=== PATIENT | female | born 1995 | race Caucasian/White ===

== ENCOUNTER 2025-02-09 01:17 | Inpatient (IN) | payer BC, SELFPAY ==
[2025-02-09] VITALS (247 sets, daily range): BP systolic 92–147; BP diastolic 48–108; PULSE 36–136; TEMP 36.6–37.7; O2SAT 90–100; BMI 29.9
--- OUTSIDE RECORDS SUMMARY | 2025-02-09 01:43 | XMS_ITS | Encounter Summary ---
Author Organization [facility] Address [address] [place] [id number] Care Team Providers Care Contact Officer Name Role Phone Francine Wood MD Primary Care Provider + Encounter Details Date Type Department Care Team (Late st Contact Info) Description 09/08/2020 Prep for Procedure [facility] [place] [address] Shonna Randall, DPTe [address] [facility] [address] [address] Social History Tobacco Use Types Packs/Day Years Used Date Smoking Tobacco: Never Smokeless Tobacco: Never Alcohol Use Standard Drinks/Week Comments Yes 3.3 (1 standard drink = 0.6 oz p ure alcohol) maybe two on weekend Comments No Sex and Gender Information Value Date Recorded Sex Assigned at Not on file Legal Sex Female 11:53 AM [employer]OE [employer] Gender Identity Not on file Sexual Orientation Not on file COVID-19 Exposure Response Date Recorded In the last month, have you been in contact with someone who was confirmed or suspected to have Coronavirus / COVID-19? No / Unsure 09/08/2020 5:25 AM CDT documented as of this encounter Plan of Treatment Upcoming Encounters Date Type Department Care Team (Late st Contact Info) Description 02/05/2026 7:30 AM CDT Office Visit [facility] - [place] [address] [place] [address] Francine Wood MD [address] [place] [address] documented as of this encounter Results * PRE-SURGICAL/PRE-PROCEDURE CORONAVIRUS (COVID 19) (09/05/2020 10:41 AM CDT) CORONAVIRUS SARS COV 2 PCR (RESP) NOT DETECTED NOT DETECTED 09/06/2020 10:35 AM CDT [employer] [facility] Comment: A Not Detected (negative) test result for this test means that SARS- CoV-2 RNA was not present in the specimen above the limit of detection. A negative result does not rule out the possibility of COVID-19 and should not be used as the sole basis for treatment or patient management decisions. If COVID-19 is still suspected, based on exposure history together with other clinical findings, re-testing should be considered in consultation with public health authorities. Laboratory test results should always be considered in the context of clinical observations and epidemiological data in making a final diagnosis and patient management decisions. Please review the Fact Sheets and FDA authorized labeling available for health care providers and patients using the following websites: https://www.[employer].com/home/Covid-19/HCP/Quest[employer]/fact- sheet.html https://www.[employer].Soluto/home/Covid-19/Patients/ QuestIVD/fact-sheet.html This test has been authorized by the FDA under an Emergency Use Authorization (EUA) for use by authorized laboratories. Due to the current public health emergency, [employer] is receiving a high volume of samples from a wide variety of swabs and media for COVID-19 testing. In order to serve patients during this public health crisis, samples from appropriate clinical sources are being tested. Negative test results derived from specimens received in non-commercially manufactured viral collection and transport media, or in media and sample collection kits not yet authorized by FDA for COVID-19 testing should be cautiously evaluated and the patient potentially subjected to extra precautions such as additional clinical monitoring, including collection of an additional specimen. Methodology: Nucleic Acid Amplification Test (NAAT) includes RT-PCR or TMA Additional information about COVID-19 can be found at the [employer] website: www.[employer].com/Covid19. Test performed at [employer] [employer] [facility] [address] [id number] Director: ZOYA FERNANDEZ DO,MPH FIRST TEST NO 09/05/2020 3:02 PM CDT [facility] EMPLOYED IN HEALTHCARE UNKNOWN 09/05/2020 3:02 PM CDT [facility] SYMPTOMATIC DEFINED BY CDC NO 09/05/2020 3:02 PM CDT [facility] DATE OF SYMPTOM ONSET UNKNOWN 09/05/2020 4:04 PM CDT [facility] HOSPITALIZATION STATUS NO 09/05/2020 3:02 PM CDT [facility] PATIENT IN ICU NO 09/05/2020 3:02 PM CDT [facility] RESIDENT OF [facility] UNKNOWN 09/05/2020 3:02 PM CDT [facility] NOT 09/05/2020 3:02 PM CDT [facility] PATIENT'S RACE WHITE OR 09/05/2020 3:02 PM CDT [facility] ETHNICITY NONHISPANIC 09/05/2020 3:02 PM CDT [facility] SOURCE (QST) NASOPHARYNGEAL SWAB 09/05/2020 3:02 PM CDT [facility] NASOPHARYNGEAL SWAB / Unknown 09/05/2020 10:41 AM CDT Shonna Burroughs DPM MICROBIOLOGY - GENERAL O RDERABLES Final Result [facility] [address] [place] [address], [facility] [employer] [facility] [address] [place] [address], documented in this encounter Visit Diagnoses Diagnosis Preoperative testing- Primary Preoperative examination, unspecified documented in this encounter Care Teams Contact Officer Relationship Specialty Start Date End Date Francine Wood MD [address] [place] [id number] PCP - General FAMILY PRACTICE 01/30/25 documented as of this encounter
--- NOTE | 2025-02-09 02:04 | LDADM ---
This patient, Jolanta Tolbert, was admitted to Labor/Delivery/Recovery 108 on 02/09/25 at 01:17. Plans for labor, pain management and were discussed with patient. Patient/family oriented to hospital policies and general routines including ID bracelet, bed and alarms, visiting hours, pain management, procedures, bathroom and other care routines, personal items, smoking policy, room service/diet and guest tray routines, security routines, and visiting hours. Patient/Family are encouraged to report perceived risks to care and to ask questions if they do not understand what they are told or what they should do. See [facility] for further documentation.
[2025-02-09 02:18] LABS: Hematocrit 30.0 % (37.0-47.0); Hemoglobin 9.7 g/dL (12.0-15.0); Immature Granulocyte Percent A 0.4 % (0-0.5); Lymphocytes Absolute Auto 2.49 K/mm3 (0.9-3.2); Mean Corpuscular HGB Conc 32.3 g/dl (32-36); Mean Corpuscular Hemoglobin 27.2 pg (26-34); Mean Corpuscular Volume 84.3 fl (80-100); Nucleated Red Blood Cells Absolute Auto 0.000 K/mm3 (0.0-0.012); Nucleated Red Blood Cells Perc 0.0 % (0.0-0.2); Platelet Count Result 221 k/mm3 (150-375); Red Blood Count 3.56 M/mm3 (4.2-5.4); White Blood Count 10.4 K/mm3 (4.5-10.0)
[2025-02-09 02:54] LABS: Syphilis IgG/IgM Antibody Non-Reactive (Nonreactive)
[2025-02-09] MEDS: OXYTOCIN 30 UNITS/NS 500 ML 30 UNITS/500 ML BAG IV CONT (07:16)
[2025-02-09] MEDS: LACTATED RINGERS 1,000 ML 125 ML IV CONT ×3 (07:16→16:51)
--- NOTE | 2025-02-09 13:10 | WPDANESEPP ---
Anes - Eval Pre Procedure Procedure: Labor Epidural Date/Time: 02/09/25 13:10 Surgeon: Sean Preop Diagnosis: Labor Pain Pre Op Diagnosis: SROM Patient Data Age: 29 Gender: F Height: 1.65 m Weight: 81.81 kg Last Vital Signs Temp 36.6 C 02/09/25 11:19 Pulse 91 02/09/25 13:08 BP 123/81 02/09/25 13:08 Pulse Ox 96 02/09/25 13:08 O2 Del Method Room Air 02/09/25 02:02 Allergies Allergy/AdvReac Type Severity Reaction Status Date / Time No Known Allergies Allergy Verified 01/16/25 08:29 Home Medications ?Medication ?Instructions ?Recorded ?Confirmed ?Type valacyclovir 500 mg tablet 500 mg PO Q12H 01/16/25 01/16/25 History Laboratory Tests 02/09/25 02:12 WBC 10.4 H K/mm3 (4.5-10.0) RBC 3.56 L M/mm3 (4.2-5.4) Hgb 9.7 L g/dL (12.0-15.0) Hct 30.0 L % (37.0-47.0) MCV 84.3 fl (80-100) MCH 27.2 pg (26-34) MCHC 32.3 g/dl (32-36) RDW 14.2 % (11.5-14.5) Plt Count 221 k/mm3 (150-375) MPV 10.3 fl (7.4-10.4) Immature Gran % (Auto) 0.4 % (0-0.5) Neut % (Auto) 68.0 % (45.5-73.1) Lymph % (Auto) 23.9 % (18.3-44.2) Throckmorton % (Auto) 6.8 % (2.6-8.5) Eos % (Auto) 0.4 % (0-4.4) Baso % (Auto) 0.5 % (0.2-1.2) Lymph # (Auto) 2.49 K/mm3 (0.9-3.2) Throckmorton # (Auto) 0.7 H K/mm3 (0.1-0.6) Eos # (Auto) 0.0 K/mm3 (0-0.3) Baso # (Auto) 0.1 K/mm3 (0.0-0.1) Abs Immat Gran (auto) 0.04 H K/mm3 (0.00-0.031) Absolute Neuts (auto) 7.1 H K/mm3 (1.3-6.7) Absolute Nucleated RBC 0.000 K/mm3 (0.0-0.012) Nucleated RBC % 0.0 % (0.0-0.2) Syphilis IgG/IgM Ab Non-reactive (Nonreactive) Blood Type A Positive Antibody Screen Negative : gestational age (, SKYE 02/03/25) Patient hx anesthesia problems: none Family hx anesthesia problems: none Results Review: All pre-operative results and documents have been reviewed as part of the pre-operative evaluation. [facility] Family History Family History (Updated 01/16/25 @ 08:05 by Celeste Ferraro RN) Sibling Asthma Grandparent Breast cancer Social History Social History Smoking status: Never smoker Second hand tobacco smoke exposure: No Substance use: never Lack of Transportation: No Lack of Food: Never True Current Housing: I Have Housing Concerned About Future Housing: No Difficulty Paying Gas/Electric Bills: No Difficulty Paying for Meds: No Currently Unemployed: No Education: Bachelor's Degree Difficulty w/ Childcare or Family Care: No Spiritual care concerns: No Exam Day of Procedure 02/09/25 13:10 Patient weight: normal Heart: regular rate and rhythm Lungs: normal air movement Airway: Mallampati scale class II Neurological: alert and oriented
[2025-02-09] MEDS: AMPICILLIN SODIUM 2 GM in SODIUM CHLORIDE 0.9% IV 100 ML 200 ML IVPB (18:57)
[2025-02-09] MEDS: ONDANSETRON INJ 4 MG/2 ML VIAL IV PUSH (19:27)
[2025-02-09] MEDS: AMPICILLIN SODIUM 1 GM in SODIUM CHLORIDE 0.9% IV 50 ML 100 ML IVPB (23:40)
[2025-02-10] VITALS (55 sets, daily range): BP systolic 105–141; BP diastolic 56–104; PULSE 73–121; RESP 14–18; TEMP 36.8–37.7; O2SAT 95–100
[2025-02-10] MEDS: AMPICILLIN SODIUM 1 GM in SODIUM CHLORIDE 0.9% IV 50 ML 100 ML IVPB (03:05)
[2025-02-10] MEDS: OXYTOCIN 30 UNITS/NS 500 ML 30 UNITS/500 ML BAG 999 UNITS IV CONT (04:15)
--- NOTE | 2025-02-10 04:19 | WPDOBADMIT ---
Obstetrics - Admit Note Admission Note: record reviewed. No pertinent additions to the history and/or any subsequent changes in the physical findings that are not consistent with the expected course of the were found. Patient admitted for SROM at 0100 on 02/09. Pitocin per protocol. Additions to the history and/or subsequent changes in the physical findings follow. None.
--- NOTE | 2025-02-10 04:20 | PM.OBPRVD ---
OB - Vaginal Delivery Note Procedure Delivery date: 02/10/25 Delivery augmentation: Pitocin Delivery monitor: External FHT and Internal Uterine Route of delivery: Episiotomy description: None Laceration Description: Perineal - 2nd Degree Delivery repair: vicryl Specimen: No Quantitative Blood Loss (ml): 150 Anesthesia type: Epidural Disposition: Floor Complications: No immediate complications Narrative: See H&P and notes for details on patient's admission and labor. She progressed to complete cervical dilation and at the appropriate time began pushing. With adequate expulsive efforts by the mother, the baby's head was delivered without difficulty. Nuchal cord was not present. The baby's left shoulder was anterior and delivered under the pubic symphysis without difficulty. The posterior shoulder and the rest of the baby delivered without difficulty. The umbilical cord was doubly clamped and cut after 2 minutes of delayed cord clamping. Care of the was then assumed by the nursing staff. Baby Date of : 02/10/25 Time of : 04:02 Gestational Age by Date: 41 gender: Male Weight (pounds): 9 Weight (ounces): 1 presentation: vertex position: Right Occiput Anterior Placenta delivery description: Expressed Cord Vessel Description: 3 Vessels and Delayed Cord Clamping score one minute: 8 score five minutes: 9
[2025-02-10] MEDS: OXYTOCIN 30 UNITS/NS 500 ML 30 UNITS/500 ML BAG 125 UNITS IV CONT (04:47)
[2025-02-10] MEDS: BENZOCAINE 20% AER SPR (*SP) 56 GM CAN 1 SPRAY TOPICAL (06:08)
[2025-02-10] MEDS: WITCH HAZEL 40 PADS 1 PAD TOPICAL (06:08)
--- NOTE | 2025-02-10 06:30 | PC.NURSE ---
Patient transferred to post room #281 via wheelchair. Support person present. Oriented to unit, room, information board, rooming in, admission packet and security measures. Patient verbalizes understanding.
[2025-02-10] MEDS: MULTIVIT/MIN/PREN/FOL AC/IRON TABLET 1 TAB PO (07:06)
[2025-02-10] MEDS: IBUPROFEN 600 MG TABLET PO ×2 (07:06→17:02)
--- NOTE | 2025-02-10 07:50 | PC.NURSE ---
Introductions were made, then consulted with patient to assess needs related to . Mother led the conversation with her?plans to feed?her infant and the?experience so far. Mother states that her arms feel weak and it is hard to hold infant for feedings. We positioned infant in the football position with pillows for support to help relieve some of the discomfort she is experiencing with holding for feedings. With help, mother was able to latch to the right breast in football position and infant was able to maintain latch. Mother denies any pain. Education given to the mother of how to visualize the suckling, swallows and how to listen for drinking at the breast. Mother voiced understanding of information, demonstrated learning and will call if there is a request for assistance. Reported to the Primary RN.
[2025-02-10] MEDS: ACETAMINOPHEN 325 MG TABLET 650 MG PO ×2 (12:06→20:35)
[2025-02-10] MEDS: DOCUSATE SODIUM 100 MG CAPSULE PO (17:03)
--- NOTE | 2025-02-10 18:04 | PC.NURSE ---
180. Introductions were made, then consulted with patient to assess needs related to . Mom expressed that she has been able to latch infant to the breast independently with no pain so far. She did explain that he has been a little sleepy, we reviewed what to do when baby is sleepy at the breast and needs to eat. Her nipples were measured per moms request to plan for her pump at home. She was measured size 17mm. Discussed with mother her plans to feed her infant and the experience so far. Encouraged mother to express any questions or concerns she has regarding feedings. Advised her to call out for a latch check or if she needs assistance waking or positioning baby. Reviewed the blue feeding worksheet for required output and feeding at least 8-12 times every 24 hours. Resources provided for inpatient and outpatient services with the feeding sheet, mom/baby guide, and name/number written on the communication board. Mother voiced understanding of information and will call if there is a request for assistance. Reported to the Primary RN?
[2025-02-11 05:03] LABS: Hematocrit 29.4 % (37.0-47.0); Hemoglobin 8.8 g/dL (12.0-15.0)
--- NOTE | 2025-02-11 07:25 | WPDANLDPN2 ---
Anes-Prog Note L&D Date/Time: 02/11/25 07:25 Neuro status: Neuro function grossly intact. Cardiovascular status: normal Respiratory status: normal Airway patency: baseline Mental status: baseline Post-Op hydration status: normal Vital Signs: Last Vital Signs Temp 36.8 C 02/10/25 21:15 Pulse 80 02/10/25 21:15 Resp 14 02/10/25 21:15 BP 125/77 02/10/25 21:15 Pulse Ox 100 02/10/25 21:15 O2 Del Method Room Air 02/09/25 18:30 Pain score (VAS): 0 I/O: Intake & Output 02/10/25 02/10/25 02/11/25 15:59 23:59 07:59 Intake Total 480 100 Balance 480 100 Post-procedural complaints: none Patient feedback: Patient satisfied with anesthetic care.
[2025-02-11 08:00] VITALS: BP 115/79; PULSE 75; RESP 18; TEMP 36.7; O2SAT 98
--- NOTE | 2025-02-11 08:08 | P.PNOB_ITS ---
OB - PN: Subj Subjective Date/time seen: 02/11/25 08:08 Interval history: pp day 1 doing well no complaints OB - PN: Obj Data Labs 02/11/25 05:00 Labs: Laboratory Results - last 24 hr 02/11/25 05:00 Hgb 8.8 L Hct 29.4 L OB - PN A/P Plan day: 1 Plan: routine care Time Spent With Patient Time: Total time spent is greater than 50% in coordination of care (as documented) at patient's floor/unit and/or counseling patient: Review of Systems 2 Review of Systems: All systems reviewed & are unremarkable except as noted in HPI and below Exam 2 Const: General: cooperative, healthy appearing and comfortable Neck: Neck: normal visual inspection Chest: Chest palpation & inspection: normal inspection of the chest Resp: Effort & Inspection: normal respiratory effort Cardio: Rate: regular rate GI: Inspection: normal to inspection
[2025-02-11] MEDS: IBUPROFEN 600 MG TABLET PO (09:35)
[2025-02-11] MEDS: MULTIVIT/MIN/PREN/FOL AC/IRON TABLET 1 TAB PO (09:35)
[2025-02-11] MEDS: DOCUSATE SODIUM 100 MG CAPSULE PO (09:35)
[2025-02-11 19:40] VITALS: BP 133/84; PULSE 79; RESP 16; TEMP 36.4; O2SAT 98
[2025-02-11 20:07] VITALS: BP 130/82; PULSE 83; RESP 14; TEMP 36.8; O2SAT 100
[2025-02-12 07:40] VITALS: BP 126/80; PULSE 84; RESP 16; TEMP 36.5; O2SAT 98
--- NOTE | 2025-02-12 08:35 | P.PNOB_ITS ---
OB - PN: Subj Subjective Date/time seen: 02/12/25 08:35 Interval history: pp day 1 doing well no complaints Patient comments: no complaints, pain well controlled and tolerating diet OB - PN: Obj Data Labs 02/11/25 05:00 OB - PN A/P Plan day: 2 Plan: routine care and discharge home Time Spent With Patient Time: Total time spent is greater than 50% in coordination of care (as documented) at patient's floor/unit and/or counseling patient: Exam 2 Const: General: comfortable and no acute distress Resp: Effort & Inspection: normal respiratory effort Auscultation: no rales, no rhonchi and no wheezes Cardio: Rate: regular rate Heart sounds: no click, no murmurs and no rubs GI: GI Palp: Yes Soft to palpation and No Tenderness to palpation present (GI) Auscultation: normal bowel sounds Extrem: General: normal to inspection, no pedal edema and no calf tenderness
--- NOTE | 2025-02-12 08:35 | P.DS_ITS ---
DS: Admitting Diagnosis Discharge Date 02/12/2025 Admitting Diagnosis Term delivered OB - DS: Summary OB Procedures : None OB Procedures Intrapartum: Spontaneous Vag Delivery OB Procedures: : None Peripartum Data Laceration Description: Perineal - 2nd Degree Episiotomy description: None Time Spent with Patient Time attestation: Total time spent providing and/or coordinating discharge services: Discharge Plan Discharge Discharging Clinician: Hunter Stevenson Patient Disposition: Home Activity: pelvic rest Diet: regular Patient Instructions: Antibiotic Form Patient Language: Vietnamese Stand Alone Forms: General Discharge Information Follow-up/Referrals: Hunter Stevenson MD [Physician, [facility]] Discharge Medications: Continued valacyclovir 500 mg tablet 500 mg PO Q12H Date of admission: 02/09/25 01:17 Primary Care Provider: NinaFrancine Admitting Provider: Cisco Estrada Attending physician on admission: Cisco Estrada Condition: Stable
[2025-02-12] MEDS: MULTIVIT/MIN/PREN/FOL AC/IRON TABLET 1 TAB PO (09:53)
[2025-02-12] MEDS: DOCUSATE SODIUM 100 MG CAPSULE PO (09:53)
--- NOTE | 2025-02-12 10:42 | PC.NURSE ---
Consulted with mother concerning needs and she shared her ability to independently latch infant optimally without pain. Mother is feeding appropriately for growth of and understands stimulating to eat if needed. Infant has had appropriate feedings in the last 24 hours meets the outcomes for weight, output, blood sugar and jaundice at this time. Reinforced understanding of milk production, transition of milk, signs of adequate intake, transition of stool, prevention/relief of engorgement, plugged ducts, mastitis, responsive watching for feeding cues, the different methods of stimulating to breastfeed 1-3 hours after the start of the last feeding, community resources, and when to call a provider using the resource of the feeding sheet along with the mom and baby guide. Mother voiced understanding of the information shared, is confident to continue effectively her infant at home, when to call for assistance, denies any additional assistance or education at this time. Reported to the Primary RN.
[2025-02-13 10:40] VITALS: BP 138/88; PULSE 84; RESP 16; TEMP 36.8; O2SAT 98
== END 2025-02-12 12:20 | disposition home or self-care (01) | DRG 807 ==
LOC: ANHLDR 01:57 → ANHOB2 02-12 08:37 → ANHLDR 02-13 09:57 → ANHOB2 02-13 09:57
PROVIDERS: Obstetrics & Gynecology; Admitting Provider Obstetrics & Gynecology; PCP Student in an Organized Health Care Education/Training Program; Visit Provider Obstetrics & Gynecology
DX: O70.1 Second degree perineal laceration during delivery (principal); Z37.0 Single live birth; Z3A.41 41 weeks gestation of pregnancy
CPT/HCPCS: 36415; 85014; 85018; 85025; 86593; 86850; 86900; 86901; A9270; J0290; J1200; J2405; J2590; J2795; J7120